=== PATIENT | male | born 1935 | race Caucasian/White ===

== ENCOUNTER 2016-11-21 12:54 | Inpatient (IN) | payer MEDICARE, BC ==
[~2016-11-21 12:54] MED LIST: AGGRENOX CAP1 BOTTLE; ALLOPURINOL100 M1 PO; ALLOPURINOL100 MG PO; ALPHAGAN P10 ML; AMARYL1 MG PO; AMARYL2 MG; ATENOLOL25 MG; BYSTOLIC10 M1 PO; BYSTOLIC10 MG PO; C-PAP; CENTRUM SILVER1 EAC3 PO; CENTRUM SILVER1 TA PO; CENTRUM TABLET1 TAB; COUMADIN2.5 M1 PO; COUMADIN3 M1 PO; CPAP; CRESTOR10 MG; CRESTOR10 MG PO; CRESTOR10 MG/TAB PO; ECOTRIN325 MG; ECOTRIN325 MG PO; ECOTRIN81 M2 PO; Ecotrin PO; FISH OIL PO; FUROSEMIDE40 MG PO; GLIMEPIRIDE2 MG; HYDRALAZINE HCL25 M1 PO; HYDRALAZINE HCL50 M1 PO; HYDRALAZINE HCL50 MG PO; HYDROCODON-ACE1 EA16 PO; HYDROCODON-ACE1 EAC7 PO; HYDROCODONE/APA1 CAP; LANTUS100 U/ML SC; LANTUS100 UNITS/ SC; LASIX40 M1 PO; LEVOTHROID25 MCG PO; LUMIGAN2.5 M1 BOTH EYES; LUMIGAN2.5 M2 BOTH EYES; MIRALAX17 G2 PO; PREDNISONE; PROTONIX40 M1 PO; STOOL SOFTENER PO; SYNTHROID25 MCG; SYNTHROID50 MC1 PO; TRICOR145 MG; TYLENOL325 M2 PO; ULTRAM50 M1 PO; ULTRAM50 MG PO; VITAMIN C; VITAMIN C1000 M1 PO; VITAMIN C1000 MG PO; VITAMIN C500 M3 PO; VITAMIN D1000 UNI3 PO; Vitamin C PO; XALATAN2.5 ML
[2016-11-21] MEDS ORDERED: NORVASC2.5 M1 PO (13:14)
[2016-11-21] MEDS ORDERED: ISOSORBIDE MONO30 M4 PO ×2 (13:15→13:22)
[2016-11-21] MEDS ORDERED: COUMADIN3 M1 PO (13:19)
[2016-11-21] MEDS ORDERED: COUMADIN2.5 M1 PO (13:19)
[2016-11-21] MEDS ORDERED: LASIX40 M1 PO (13:20)
[2016-11-21] MEDS ORDERED: CRESTOR10 M1 PO (13:20)
[2016-11-21] MEDS ORDERED: SYNTHROID50 MC1 PO (13:20)
[2016-11-21] MEDS ORDERED: ALLOPURINOL100 M1 PO (13:21)
[2016-11-21] MEDS ORDERED: LUMIGAN2.5 M2 EACH EYE (13:21)
[2016-11-21] MEDS ORDERED: LANTUS100 UNITS/ SC (13:21)
[2016-11-21] MEDS ORDERED: ECOTRIN81 M2 PO (13:22)
[2016-11-21] MEDS ORDERED: NORCO 5-325 TA1 EACH PO (13:22)
[2016-11-21] MEDS ORDERED: VITAMIN D31000 UNI3 PO (13:23)
[2016-11-21] MEDS ORDERED: VITAMIN C500 M3 PO (13:23)
[2016-11-21] MEDS ORDERED: HYDRALAZINE HCL25 M1 PO ×2 (13:50)
[2016-11-22 04:12] LABS: BASO % 0.3 % (0-2); EOS % 1.5 % (0-7); EOSINOPHIL ABSOLUTE COUNT 0.1 tho/cmm (0.0-0.7); HGB-HEMOGLOBIN 8.3 gm/dl (13.5-17.0); IMMATURE GRANULOCYTES ABSOLUTE 0.02 tho/cmm (0-0.03); IMMATURE GRANULOCYTES PERCENT 0.3 % (0-0.3); LYMPH % 23.1 % (20-45); LYMPH ABSOLUTE COUNT 1.7 tho/cmm (0.8-4.5); MCH (MEAN CORPUSCULAR HGB) 27.8 pg (28.0-32.0); MCHC MEAN CORPUSCULAR HGB CONC 31.9 % (32.0-36.0); MEAN PLATELET VOLUME 8.6 cmc (9.4-12.4); MONO % 8.8 % (0-12); MONOCYTE ABSOLUTE COUNT 0.6 tho/cmm (0.0-1.2); NEUTROPHIL ABSOLUTE COUNT 4.8 tho/cmm (1.6-8.0); NEUTROPHIL-AUTOMATED 4.8 tho/cmm (1.6-8.0); PLATELET COUNT 125 tho/cmm (150-450); RED BLOOD COUNT 2.99 mil/cmm (4.40-5.70); RED CELL DISTRIBUTION WIDTH 16.8 % (12.4-16.4); WHITE BLOOD COUNT 7.2 tho/cmm (4.0-10.0)
[2016-11-22 04:23] LABS: INR 1.1 INR (0.9-1.1); PROTHROMBIN TIME 12.5 SECONDS (9.0-13.6)
[2016-11-22 04:36] LABS: ALB/GLOB RATIO 0.8 (0.8-2.0); ALBUMIN 2.6 g/dl (3.5-5.0); ALKALINE PHOSPHATASE 63 U/L (33-138); ALT/SGPT 18 U/L (12-78); ANION GAP 13 mmol/L (0-20); AST/SGOT 21 U/L (10-40); BILIRUBIN,TOTAL 0.6 mg/dl (0.0-1.5); BLOOD UREA NITROGEN 63 mg/dl (6-24); CALCIUM 8.1 mg/dl (8.5-10.5); CARBON DIOXIDE-VENOUS 28 mmol/L (22-32); CHLORIDE 109 mmol/l (96-110); CREATININE 2.13 mg/dl (0.60-1.30); GLUCOSE 99 mg/dL (70-110); POTASSIUM 3.9 mmol/L (3.7-5.1); SODIUM 146 mmol/L (135-145); eGFR VALUE FOR BLACK 33 mL/Min
[2016-11-23 05:35] LABS: INR 1.1 INR (0.9-1.1); PROTHROMBIN TIME 12.2 SECONDS (9.0-13.6)
[2016-11-23 11:15] LABS: HCT-HEMATOCRIT 26.1 % (36.0-53.5); HGB-HEMOGLOBIN 8.3 gm/dl (13.5-17.0); MCV (MEAN CELL VOLUME) 88.8 fl (82.0-96.0); RED CELL DISTRIBUTION WIDTH 16.8 % (12.4-16.4)
[2016-11-24 04:59] LABS: HCT-HEMATOCRIT 24.8 % (36.0-53.5); HGB-HEMOGLOBIN 7.8 gm/dl (13.5-17.0); MCV (MEAN CELL VOLUME) 88.6 fl (82.0-96.0); RED CELL DISTRIBUTION WIDTH 16.5 % (12.4-16.4)
[2016-11-24 05:05] LABS: PROTHROMBIN TIME 11.5 SECONDS (9.0-13.6)
[2016-11-25 04:42] LABS: BASO % 0.3 % (0-2); EOS % 2.1 % (0-7); EOSINOPHIL ABSOLUTE COUNT 0.1 tho/cmm (0.0-0.7); HCT-HEMATOCRIT 27.8 % (36.0-53.5); HGB-HEMOGLOBIN 8.7 gm/dl (13.5-17.0); IMMATURE GRANULOCYTES ABSOLUTE 0.02 tho/cmm (0-0.03); IMMATURE GRANULOCYTES PERCENT 0.3 % (0-0.3); LYMPH ABSOLUTE COUNT 1.8 tho/cmm (0.8-4.5); MCH (MEAN CORPUSCULAR HGB) 27.8 pg (28.0-32.0); MCHC MEAN CORPUSCULAR HGB CONC 31.3 % (32.0-36.0); MCV (MEAN CELL VOLUME) 88.8 fl (82.0-96.0); MEAN PLATELET VOLUME 9.4 cmc (9.4-12.4); MONO % 8.6 % (0-12); MONOCYTE ABSOLUTE COUNT 0.5 tho/cmm (0.0-1.2); NEUTROPHIL ABSOLUTE COUNT 3.8 tho/cmm (1.6-8.0); NEUTROPHIL-AUTOMATED 3.8 tho/cmm (1.6-8.0); NEUTROPHILS % 59.7 % (40-80); PLATELET COUNT 145 tho/cmm (150-450); RED BLOOD COUNT 3.13 mil/cmm (4.40-5.70); RED CELL DISTRIBUTION WIDTH 16.3 % (12.4-16.4); WHITE BLOOD COUNT 6.3 tho/cmm (4.0-10.0)
[2016-11-25 04:45] LABS: INR 0.9 INR (0.9-1.1); PROTHROMBIN TIME 10.8 SECONDS (9.0-13.6)
[2016-11-25 04:49] LABS: ANION GAP 9 mmol/L (0-20); BLOOD UREA NITROGEN 40 mg/dl (6-24); CALCIUM 8.5 mg/dl (8.5-10.5); CARBON DIOXIDE-VENOUS 28 mmol/L (22-32); CHLORIDE 112 mmol/l (96-110); CREATININE 2.13 mg/dl (0.60-1.30); GLUCOSE 110 mg/dL (70-110); POTASSIUM 4.3 mmol/L (3.7-5.1); SODIUM 145 mmol/L (135-145); eGFR VALUE FOR BLACK 33 mL/Min
[2016-11-25] MEDS ORDERED: PROTONIX40 M2 PO (12:06)
== END 2016-11-25 13:58 | DRG 378 ==
LOC: PCUA 12:54 → PACU 15:15 → PCUA 16:00
PROVIDERS: Internal Medicine; Specialist; ADMIT Family Medicine
PROC: 0DJ08ZZ Inspection of Upper Intestinal Tract, Via Natural or Artificial Opening Endoscopic (ICD-10-PCS; principal; 2016-11-21)
PROC: 30233N1 Transfusion of Nonautologous Red Blood Cells into Peripheral Vein, Percutaneous Approach (ICD-10-PCS; 2016-11-21)
PROC: 0DJ08ZZ Inspection of Upper Intestinal Tract, Via Natural or Artificial Opening Endoscopic (ICD-10-PCS; 2016-11-25)
DX: K29.51 Unspecified chronic gastritis with bleeding (principal); D62 Acute posthemorrhagic anemia; I48.0 Paroxysmal atrial fibrillation; E11.40 Type 2 diabetes mellitus with diabetic neuropathy, unspecified; E11.319 Type 2 diabetes mellitus with unspecified diabetic retinopathy without macular edema; K21.9 Gastro-esophageal reflux disease without esophagitis; I25.10 Atherosclerotic heart disease of native coronary artery without angina pectoris; G89.29 Other chronic pain; M54.9 Dorsalgia, unspecified; M10.9 Gout, unspecified; E78.5 Hyperlipidemia, unspecified; E03.9 Hypothyroidism, unspecified; M35.3 Polymyalgia rheumatica; I10 Essential (primary) hypertension; R32 Unspecified urinary incontinence; G47.33 Obstructive sleep apnea (adult) (pediatric); E66.9 Obesity, unspecified; Z68.36 Body mass index [BMI] 36.0-36.9, adult; Z88.8 Allergy status to other drugs, medicaments and biological substances; Z79.01 Long term (current) use of anticoagulants; Z79.4 Long term (current) use of insulin; Z79.891 Long term (current) use of opiate analgesic; Z79.899 Other long term (current) drug therapy; Z96.653 Presence of artificial knee joint, bilateral; Z95.1 Presence of aortocoronary bypass graft; Z95.5 Presence of coronary angioplasty implant and graft
CPT/HCPCS: C1751; C9113; J1815; J7030; J7050; P9017